=== PATIENT | male | born 1985 | race Caucasian/White ===

== ENCOUNTER 2017-10-26 01:03 | Inpatient (IN) | payer BC, OTHER ==
[~2017-10-26] VITALS: Ht 180.3 cm; Wt 77.1 kg
[2017-10-26 03:30] VITALS: BP 123/72
[2017-10-26] MEDS ORDERED: BUPR300T52 PO (03:43)
[2017-10-26] MEDS ORDERED: BUPR-96 PO (03:43)
[2017-10-26] MEDS ORDERED: MAG HYDROX/AL HYDROX/SIMETH 30 ML LIQUID UDC PO PRN (03:45)
[2017-10-26] MEDS ORDERED: DIAZEPAM 5 MG TABLET PO PRN (03:45)
[2017-10-26] MEDS ORDERED: LOPERAMIDE HCL 2 MG CAPSULE PO PRN ×2 (03:45)
[2017-10-26] MEDS ORDERED: DICYCLOMINE HCL 20 MG TABLET PO PRN (03:45)
[2017-10-26] MEDS ORDERED: ONDANSETRON 4 MG/2 ML VIAL IM PRN (03:45)
[2017-10-26] MEDS ORDERED: HYDROXYZINE PAMOATE 25 MG CAPSULE PO PRN (03:45)
[2017-10-26] MEDS ORDERED: IBUPROFEN 400 MG TABLET PO PRN (03:45)
[2017-10-26] MEDS ORDERED: CLONIDINE HCL 0.1 MG TABLET PO PRN (03:45)
[2017-10-26] MEDS ORDERED: ACETAMINOPHEN 325 MG TABLET PO PRN (03:45)
[2017-10-26] MEDS ORDERED: MAGNESIUM HYDROXIDE 30 ML LIQUID UDC PO PRN (03:45)
[2017-10-26] MEDS ORDERED: LORAZEPAM 2 MG/1 ML VIAL IM PRN (03:45)
[2017-10-26] MEDS ORDERED: MIRALAX 17 GM POWD.PACK PO PRN (03:45)
[2017-10-26] MEDS ORDERED: DIAZEPAM 10 MG TABLET PO PRN ×2 (03:45→12:30)
[2017-10-26] MEDS ORDERED: ONDANSETRON ODT 4 MG TAB.RAPDIS SL PRN (03:45)
[2017-10-26 03:56] LABS: BASOPHILS # (AUTO) 0.1 K/uL (0.0-8.0); BASOPHILS % (AUTO) 0.6 % (0.0-2.0); EOSINOPHILS # (AUTO) 1.1 K/uL (0.0-0.7); EOSINOPHILS % (AUTO) 9.4 % (0.0-7.0); HEMATOCRIT 46.5 % (36.7-47.1); HEMOGLOBIN 15.7 g/dL (12.5-16.3); LYMPHOCYTES # (AUTO) 2.4 K/uL (20.0-40.0); LYMPHOCYTES % (AUTO) 20.4 % (20.5-51.5); MEAN CORPUSCULAR HEMOGLOBIN 28.7 uug (23.8-33.4); MEAN CORPUSCULAR HGB CONC 34 g/dL (32.5-36.3); MONOCYTES # (AUTO) 0.7 K/uL (2.0-10.0); NEUTROPHILS # (AUTO) 7.6 K/uL (1.8-8.9); NEUTROPHILS % (AUTO) 63.6 % (38.5-71.5); PLATELET COUNT (AUTO) 284 K/uL (152-348); RED BLOOD CELL COUNT(AUTO) 5.47 MIL/uL (4.06-5.63); WHITE BLOOD COUNT (AUTO) 11.9 K/uL (3.6-10.2)
[2017-10-26 04:00] VITALS: BP 116/73
[2017-10-26 04:07] LABS: ETHANOL < 3 MG/DL (0-0)
[2017-10-26 04:12] LABS: ALANINE AMINOTRANSFERASE 42 U/L (16-63); ALKALINE PHOSPHATASE 78 U/L (50-136); AMYLASE 38 U/L (25-115); ASPARTATE AMINOTRANSFERASE 24 U/L (15-37); BILIRUBIN,TOTAL 0.5 mg/dL (0.2-1.0); CARBON DIOXIDE 31 mmol/L (21-32); CHLORIDE 98 mmol/L (98-107); CREATININE 0.9 mg/dL (0.6-1.3); GLUCOSE 105 mg/dL (74-106); LIPASE 133 U/L (73-393); MAGNESIUM 2.3 mg/dL (1.8-2.4); POTASSIUM 4.4 mmol/L (3.5-5.1); TOTAL PROTEIN, SERUM 7.6 g/dL (6.4-8.2); UREA NITROGEN, BLOOD 15 mg/dL (7-18)
[2017-10-26 04:23] LABS: THYROID STIMULATING HORMONE 1.279 mIU/mL (0.358-3.740)
[2017-10-26 04:36] LABS: *AMPHETAMINE, URINE NEGATIVE (NEGATIVE); *BARBITURATE, URINE POSITIVE (NEGATIVE); *CANNABINOID, URINE NEGATIVE (NEGATIVE); *COCCAINE, URINE POSITIVE (NEGATIVE); *OPIATE, URINE POSITIVE (NEGATIVE); *PHENCYCLIDINE SCREEN,URINE NEGATIVE (NEGATIVE)
[2017-10-26] MEDS: METHOCARBAMOL 750 MG TABLET PO PRN ×2 (04:59→19:48)
[2017-10-26] MEDS: DIAZEPAM 10 MG TABLET PO PRN ×2 (04:59→19:47)
[2017-10-26] MEDS ORDERED: METHOCARBAMOL 750 MG TABLET ONE (05:07)
[2017-10-26] MEDS ORDERED: DIAZEPAM 10 MG TABLET ONE (05:13)
[2017-10-26] MEDS ORDERED: OXYM15MI4 NS (07:14)
[2017-10-26] MEDS ORDERED: RANI150T12 PO (07:14)
[2017-10-26 08:00] VITALS: BP 119/69
[2017-10-26] MEDS ORDERED: TUBERCULIN,PURIF.PROT.DERIV. 5 TU/0.1 ML TEST ID ONE (09:00)
[2017-10-26] MEDS: MULTIVITAMINS,THERAPEUTIC TABLET PO SCH (09:00)
[2017-10-26] MEDS: FOLIC ACID 1 MG TABLET PO SCH (09:00)
[2017-10-26] MEDS: buPROPion XL 150 MG TAB.SR.24H PO SCH (11:59)
[2017-10-26 12:00] VITALS: BP 98/68
[2017-10-26] MEDS ORDERED: NICOTINE POLACRILEX 4 MG GUM-PK OF TEN BC PRN (12:30)
[2017-10-26] MEDS ORDERED: IBUPROFEN 600 MG TABLET PO PRN (12:30)
[2017-10-26] MEDS ORDERED: NICOTINE 14 MG/24HR PATCH TD PRN (12:30)
[2017-10-26] MEDS: FLUTICASONE PROP NASAL SPRAY 16 GM BOTTLE NS SCH (13:00)
[2017-10-26 16:00] VITALS: BP 99/68
[2017-10-26] MEDS: BUPRENORPHINE HCL 2 MG TAB.SUBL SL PRN (19:47)
[2017-10-26] MEDS: NORMAL SALINE NASAL 45 ML BOTTLE NS PRN (19:48)
[2017-10-26 20:00] VITALS: BP 113/75
[2017-10-26] MEDS: GABAPENTIN 300 MG CAPSULE PO SCH (21:19)
[2017-10-26] MEDS: FAMOTIDINE 20 MG TABLET PO SCH (21:19)
[2017-10-27] VITALS: BP 110/77
[2017-10-27 04:00] VITALS: BP 117/74
[2017-10-27 08:00] VITALS: BP 108/64
[2017-10-27] MEDS: FOLIC ACID 1 MG TABLET PO SCH (08:55)
[2017-10-27] MEDS: FAMOTIDINE 20 MG TABLET PO SCH ×2 (08:55→21:07)
[2017-10-27] MEDS: MULTIVITAMINS,THERAPEUTIC TABLET PO SCH (08:55)
[2017-10-27] MEDS: GABAPENTIN 300 MG CAPSULE PO SCH ×2 (08:55→21:07)
[2017-10-27] MEDS: buPROPion XL 150 MG TAB.SR.24H PO SCH (08:56)
[2017-10-27] MEDS: FLUTICASONE PROP NASAL SPRAY 16 GM BOTTLE NS SCH (08:56)
[2017-10-27] MEDS: METHOCARBAMOL 750 MG TABLET PO PRN (09:16)
[2017-10-27] MEDS: BUPRENORPHINE HCL 2 MG TAB.SUBL SL PRN (09:16)
[2017-10-27 12:51] VITALS: BP 107/61
[2017-10-27 13:07] LABS: HEPATITIS B SURFACE AG Negative (Negative)
[2017-10-27] MEDS: BUPRENORPHINE HCL 2 MG TAB.SUBL SL SCH ×2 (15:00→21:07)
[2017-10-27] MEDS: DIAZEPAM 10 MG TABLET PO SCH ×2 (15:08→21:07)
[2017-10-27 16:00] VITALS: BP 122/84
[2017-10-27 20:45] VITALS: BP 128/78
[2017-10-28 00:03] VITALS: BP 135/84
[2017-10-28 04:52] VITALS: BP 110/72
[2017-10-28 08:00] VITALS: BP 111/71
[2017-10-28] MEDS: FOLIC ACID 1 MG TABLET PO SCH (08:28)
[2017-10-28] MEDS: MULTIVITAMINS,THERAPEUTIC TABLET PO SCH (08:28)
[2017-10-28] MEDS: DIAZEPAM 5 MG TABLET PO SCH ×3 (08:28→21:33)
[2017-10-28] MEDS: BUPRENORPHINE HCL 2 MG TAB.SUBL SL SCH ×3 (08:28→21:33)
[2017-10-28] MEDS: buPROPion XL 150 MG TAB.SR.24H PO SCH (08:28)
[2017-10-28] MEDS: FAMOTIDINE 20 MG TABLET PO SCH ×2 (08:28→21:33)
[2017-10-28] MEDS: GABAPENTIN 300 MG CAPSULE PO SCH ×2 (08:28→21:33)
[2017-10-28] MEDS: FLUTICASONE PROP NASAL SPRAY 16 GM BOTTLE NS SCH (08:29)
[2017-10-28 12:00] VITALS: BP 124/80
[2017-10-28] MEDS: METHOCARBAMOL 750 MG TABLET PO PRN (15:20)
[2017-10-28 16:00] VITALS: BP 104/71
[2017-10-28 20:23] VITALS: BP 129/81
[2017-10-29] MEDS: diphenhydrAMINE 50 MG CAPSULE PO PRN ×2 (00:08→21:25)
[2017-10-29 00:26] VITALS: BP 126/83
[2017-10-29 04:12] VITALS: BP 112/71
[2017-10-29 08:00] VITALS: BP 105/65
[2017-10-29] MEDS ORDERED: BUPRENORPHINE HCL 2 MG TAB.SUBL SL SCH (09:00)
[2017-10-29] MEDS ORDERED: PNEUMOCOCCAL 23-VAL P-SAC VAC 0.5 ML VIAL IM ONE (09:00)
[2017-10-29] MEDS ORDERED: DIAZEPAM 5 MG TABLET PO SCH (09:00)
[2017-10-29] MEDS: MULTIVITAMINS,THERAPEUTIC TABLET PO SCH (09:24)
[2017-10-29] MEDS: buPROPion XL 150 MG TAB.SR.24H PO SCH (09:24)
[2017-10-29] MEDS: FAMOTIDINE 20 MG TABLET PO SCH ×2 (09:25→21:26)
[2017-10-29] MEDS: FLUTICASONE PROP NASAL SPRAY 16 GM BOTTLE NS SCH (09:25)
[2017-10-29] MEDS: GABAPENTIN 300 MG CAPSULE PO SCH ×2 (09:25→21:26)
[2017-10-29] MEDS: FOLIC ACID 1 MG TABLET PO SCH (09:25)
[2017-10-29 12:00] VITALS: BP 99/62
[2017-10-29 17:00] VITALS: BP 100/60
[2017-10-29 20:00] VITALS: BP 117/77
[2017-10-29] MEDS: BACLOFEN 10 MG TABLET PO SCH (21:26)
[2017-10-29] MEDS: NORMAL SALINE NASAL 45 ML BOTTLE NS PRN (21:30)
[2017-10-29] MEDS ORDERED: GABA-534 PO (21:32)
[2017-10-29] MEDS ORDERED: METH-406 PO (21:32)
[2017-10-29] MEDS ORDERED: IBUP-1955 PO (21:32)
[2017-10-29] MEDS ORDERED: DICY20TA28 PO (21:32)
[2017-10-29] MEDS ORDERED: DIPH50CA37 PO (21:32)
[2017-10-29] MEDS ORDERED: FAMO20TA8 PO (21:32)
[2017-10-29] MEDS ORDERED: HYDR-3895 PO (21:36)
[2017-10-30 08:00] VITALS: BP 115/66
[2017-10-30] MEDS: buPROPion XL 150 MG TAB.SR.24H PO SCH (08:41)
[2017-10-30] MEDS: FLUTICASONE PROP NASAL SPRAY 16 GM BOTTLE NS SCH (08:41)
[2017-10-30] MEDS: MULTIVITAMINS,THERAPEUTIC TABLET PO SCH (08:42)
[2017-10-30] MEDS: FAMOTIDINE 20 MG TABLET PO SCH (08:42)
[2017-10-30] MEDS: FOLIC ACID 1 MG TABLET PO SCH (08:42)
[2017-10-30] MEDS: GABAPENTIN 300 MG CAPSULE PO SCH (08:42)
[2017-10-30] MEDS: BACLOFEN 10 MG TABLET PO SCH (08:42)
== END 2017-10-30 09:27 | disposition other institution (70) | DRG 895 ==
LOC: SRC 02:19
PROVIDERS: ADMIT Internal Medicine; ATTEND Internal Medicine
PROC: HZ2ZZZZ Detoxification Services for Substance Abuse Treatment (ICD-10-PCS; principal; 2017-10-26)
PROC: HZ41ZZZ Group Counseling for Substance Abuse Treatment, Behavioral (ICD-10-PCS; 2017-10-28)
DX: F11.23 Opioid dependence with withdrawal (principal); F33.2 Major depressive disorder, recurrent severe without psychotic features; F14.20 Cocaine dependence, uncomplicated; F13.230 Sedative, hypnotic or anxiolytic dependence with withdrawal, uncomplicated; F15.10 Other stimulant abuse, uncomplicated; F17.210 Nicotine dependence, cigarettes, uncomplicated; F41.9 Anxiety disorder, unspecified; J30.2 Other seasonal allergic rhinitis; K57.90 Diverticulosis of intestine, part unspecified, without perforation or abscess without bleeding; K27.7 Chronic peptic ulcer, site unspecified, without hemorrhage or perforation; D72.823 Leukemoid reaction; Z79.899 Other long term (current) drug therapy
CPT/HCPCS: 36415; 70030-TC; 80307; 80345; 80353; 80361; 83690; 83735; 84443; 85025; 86592; 86705; 86803; 87340; 87806; G0480; J3535; Q0163